=== PATIENT | female | born 1990 | race Caucasian/White ===

== ENCOUNTER 2017-04-28 07:13 | Emergency (ER) | payer OTHER ==
[2017-04-28 07:51] VITALS: BMI 24.8
[2017-04-28] MEDS ORDERED: Lactated Ringer's 1,000 ML IV SCH (08:30)
--- NOTE | 2017-04-28 10:42 | OBHP ---
Datetime: 04/28/2017 10:32 IP Adm Impression: Term, intrauterine IP Admit Plan: Discharge home Admit Comment, IP Provider: 26 yo G1 at 37+6 wks c/o painful ctxns since 3am, denies LOF, VB and rep orts FM. Pt is a pt of Dr. Griggs. PMH: Healthy PSH: None Meds: PNVs All: NKDA Fam hx: N/c Soc hx: Pt denies tobacco, alcohol, and illicit drug use [employer] hx: 12x regular periods, denies STDs and abn paps PE: AFVSS Gen'l: pt appears slightly uncomfortable Abd: soft, NT, gravid Ext: NT VE: closed/ posterior (exam at 0828) EFM: as above [place]: as above A/P: 26 yo G1 at 37+6 wks w/ painful ctxns. NST reactive. Pt re-examined by Dr. Pacheco at 1000, unc hanged, and pt discharged home w/ labor precautions. Extremities - PN: Normal Abdomen - PN: Normal Neurologic - PN: Normal FHR - Baseline A Provider: 130's Membranes, Provider: Intact Contraction Comments Provider: irregular EGA AdmitDate IP: 37.6 Vital Signs Provider: Reviewed IP Chief Complaint: Uterine contractions NICHD Variability Prov Fetus A: Moderate 6-25bpm NICHD Accel Fetus A IP Provider: 15X15 FHR Category Provider Fetus A: Category I NICHD Decel Fetus A IP Provider: None Dilatation, Provider: 0 Effacement, Provider: 0 Station, Provider: -3 Genitourinary Exam: Normal
[2017-04-28 14:26] VITALS: BP 110/73; PULSE 92; RESP 16; TEMP 97.8
== END 2017-04-28 09:59 | disposition home or self-care (01) ==
LOC: H.EROB2 07:13
DX: O26.93 Pregnancy related conditions, unspecified, third trimester (principal); R10.2 Pelvic and perineal pain; Z3A.38 38 weeks gestation of pregnancy
CPT/HCPCS: 99283; J7120

== ENCOUNTER 2017-05-09 12:46 | Emergency (ER) | payer OTHER | END 2017-05-09 18:00 | disposition home or self-care (01) | LOC: H.EROB2 12:46 → H.L&D 12:46 → H.EROB2 18:00 | DX: O47.1 False labor at or after 37 completed weeks of gestation (principal); O26.93 Pregnancy related conditions, unspecified, third trimester; R10.2 Pelvic and perineal pain; Z3A.39 39 weeks gestation of pregnancy ==

== ENCOUNTER 2017-05-10 01:33 | Inpatient (IN) | payer OTHER ==
[2017-05-10 02:11] VITALS: BMI 23.6
[2017-05-10] MEDS ORDERED: AMPicillin 2 GM in Sodium Chloride 0.9% 100 ML IVPB ONE (02:30)
--- NOTE | 2017-05-10 02:33 | OBHP ---
Datetime: 05/10/2017 02:15 IP Adm Impression: Term, intrauterine ; Intact Membranes IP Admit Plan: Admit to unit; Initiate labor protocol Admit Comment, IP Provider: 26yo IUP at term c/o ctx pain today. She was seen earlier by Dr Yogesh price and noted to be closed. Pain worsened in intensit. No SROM. No VB. +FM POBGYNH: no STD; G1 PMNH: denies PSH denies NKA PSoH: no smoking ETOH drugs A; IUP at term ; latent phase of labor GBS+ PLAN: spoke with Dr Griggs - will admit; IV access; check labs; pain mananagment, labor and deliv nils discussed chart rev'd Pelvic Type - PN: Adequate Extremities - PN: Normal Abdomen - PN: Normal Back - PN: Normal Breast - PN: Not Done Lungs - PN: Normal Heart - PN: Normal Thyroid - PN: Normal Neurologic - PN: Normal HEENT - PN: Normal General - PN: Normal Presentation-Admit: Vertex FHR - Baseline A Provider: 130 IP Hx Assessment: The History has been Reviewed and is Current EGA AdmitDate IP: 39.4 Vital Signs Provider: Reviewed; Within Normal Limits IP Chief Complaint: Uterine contractions NICHD Variability Prov Fetus A: Moderate 6-25bpm NICHD Accel Fetus A IP Provider: 15X15 FHR Category Provider Fetus A: Category I NICHD Decel Fetus A IP Provider: None Dilatation, Provider: 2 Genitourinary Exam: Normal DTRs - PN: Normal
[2017-05-10] MEDS: Lactated Ringer's 1,000 ML IV SCH ×2 (03:00→04:00)
[2017-05-10 03:55] LABS: BASO % 0.3 % (0.0-2.0); EOS # 0.1 K/uL (0.0-0.7); EOS % 0.7 % (0.0-4.0); HEMATOCRIT 38.1 % (34.0-47.0); LYMPH # 1.8 K/uL (1.0-4.3); LYMPH % 19.3 % (20.0-40.0); MEAN CELL VOLUME 89.6 fl (81.0-99.0); MEAN CORPUSCULAR HEMOGLOBIN 30.9 pg (27.0-31.0); MEAN CORPUSCULAR HGB CONC 34.4 g/dL (33.0-37.0); MEAN PLATELET VOLUME 10.3 fl (7.2-11.7); MONO # 0.9 K/uL (0.0-0.8); MONO % 9.9 % (0.0-10.0); NEUT # 6.5 K/uL (1.8-7.0); NEUT % 69.8 % (50.0-75.0); NRBC % 0.2 % (0.0-0.0); RED CELL DISTRIBUTION WIDTH 14.9 % (11.5-14.5); WHITE BLOOD COUNT 9.3 K/uL (4.8-10.8)
[2017-05-10] MEDS ORDERED: Fentanyl/Bupivacaine HCl 250 ML EPI ONE (04:50)
[2017-05-10] MEDS ORDERED: Bupivacaine HCl 0.25% PF (10 ml) Inj ONE (04:51)
[2017-05-10] MEDS ORDERED: Lactated Ringer's 1,000 ML IV SCH (05:00)
[2017-05-10] MEDS: AMPicillin 1 GM in Sodium Chloride 0.9% 100 ML IVPB SCH ×2 (07:12→11:00)
[2017-05-10] MEDS ORDERED: Oxytocin 30 units/LR 500ML 30 U/500 ML BAG IV ONE (07:37)
--- NOTE | 2017-05-10 07:42 | OBADHP ---
Datetime: 05/10/2017 02:15 Admit Comment, IP Provider: 26yo IUP at term c/o ctx pain today. She was seen earlier by Dr Yogesh price and noted to be closed. Pain worsened in intensit. No SROM. No VB. +FM POBGYNH: no STD; G1 PMNH: denies PSH denies NKA PSoH: no smoking ETOH drugs A; IUP at term ; latent phase of labor GBS+ PLAN: spoke with Dr Griggs - will admit; IV access; check labs; pain mananagment, labor and deliv nils discussed chart rev'd Pelvic Type - PN: Adequate Extremities - PN: Normal Abdomen - PN: Normal Back - PN: Normal Breast - PN: Not Done Lungs - PN: Normal Heart - PN: Normal Thyroid - PN: Normal Neurologic - PN: Normal HEENT - PN: Normal General - PN: Normal Presentation-Admit: Vertex FHR - Baseline A Provider: 130 Membranes, Provider: Intact Contraction Comments Provider: 3 min Comments, ACOG Physical Exam: Abd gravid, NT Ext no calf tenderness IP Hx Assessment: The History has been Reviewed and is Current Vital Signs Provider: Reviewed; Within Normal Limits IP Chief Complaint: Uterine contractions NICHD Variability Prov Fetus A: Moderate 6-25bpm NICHD Accel Fetus A IP Provider: 15X15 FHR Category Provider Fetus A: Category I NICHD Decel Fetus A IP Provider: None Dilatation, Provider: 2-3 Effacement, Provider: 80-90 Genitourinary Exam: Normal DTRs - PN: Normal EGA AdmitDate IP: 39.4 IP Adm Impression: Term, intrauterine ; Intact Membranes IP Admit Plan: Admit to unit; Initiate labor protocol Datetime: 04/28/2017 10:32 Station, Provider: -3
[2017-05-10] MEDS ORDERED: Lidocaine 1% Inj (20ml) ONE (07:59)
--- NOTE | 2017-05-10 12:00 | OBDS ---
DELIVERY PERSONNEL Delivery Doctor: Asha Griggs MD Physician Assistant Surgery: Desi Adair RN MATERNAL INFORMATION Delivery Anesthesia: Epidural Medications in Delivery: pitocin Estimated Blood Loss (ml): 200 Maternal Complications: None Provider Comments: Delivered a living baby boy appears term cried spontaneously 9/9, AF clear placenta delivered complete and intact Episiotomy repaired as above. No complications Rectal done no defects Uterus contracted well no vaginal cervical or perineal lacerations noted Tolerated procedure well LABOR SUMMARY EDC: 05/13/2017 00:00 No. Babies in Womb: 1 Attempted: No Labor Anesthesia: Epidural LABOR INFORMATION Reason for Induction: Not Applicable Reason for Induction Other: n/a Onset of Labor: 05/09/2017 18:00 Complete Dilatation: 05/10/2017 09:15 Oxytocin: Augmentation Group B Beta Strep: Positive Antibiotics # of Doses: 3 Antibiotics Time of Last Dose: 1100 Steroids Given: None Reason Steroids Not Administered: Not Applicable Other Reason Not Administered: n/a MEMBRANES Membranes Rupture Method: Artificial Rupture of Membranes: 05/10/2017 07:30 Length of Rupture (hrs): 3.82 Amniotic Fluid Color: Clear Amniotic Fluid Amount: Moderate Amniotic Fluid Odor: Normal STAGES OF LABOR Stage 1 hrs: 15 Stage 1 min: 15 Stage 2 hrs: 2 Stage 2 min: 4 Stage 3 hrs: 0 Stage 3 min: 6 Total Time in Labor hrs: 17 Total Time in Labor min: 25 VAGINAL DELIVERY Episiotomy: Median Laceration Extension: Second Degree Laceration Type: Perineal Laceration Repair: Yes Laceration Repair Note: A medial vaginal-perineal episiotomy done and repaired with 2-0 chromic inte rrupted and cont suturing without any complications Initial Vag Sponge Count: 5 Final Vag Sponge Count: 5 Initial Vag Sharps Count: 4 Final Vag Sharps Count: 4 Sponge Count Correct: Yes Sharps Count Correct: Yes Count Comment: correct count and verifired by nurse CSECTION DELIVERY Primary Indication: N/A Secondary Indication: N/A CSection Incision: N/A Uterine Closure: N/A BABY A INFORMATION Delivery Date/Time: 05/10/2017 11:19 Method of Delivery: Vaginal Born in Route : No : N/A Forceps: N/A Vacuum Extraction: N/A Shoulder Dystocia : No SHOULDER DYSTOCIA BABY A Infant Delivery Date/Time: 05/10/2017 11:19 PRESENTATION/POSITION BABY A Presentation: Cephalic Cephalic Presentation: Vertex Breech Presentation: N/A PLACENTA INFORMATION BABY A Placenta Delivery Time : 05/10/2017 11:25 Placenta Method of Delivery: Spontaneous Placenta Status: Delivered SCORES BABY A Heart Rate 1 min: >100 bpm Resp Effort 1 min: Good Cry Reflex Irritability 1 min: Cough or Sneeze or Pulls Away Muscle Tone 1 min: Active Motion Color 1 min: Body [place], Extremities Blue Resuscitation Effort 1 min: Tactile Stimulation SCORE 1 MIN: 9 Heart Rate 5 min: >100 bpm Resp Effort 5 min: Good Cry Reflex Irritability 5 min: Cough or Sneeze or Pulls Away Muscle Tone 5 min: Active Motion Color 5 min: Body [place], Extremities Blue Resuscitation Effort 5 min: Tactile Stimulation SCORE 5 MIN: 9 INFORMATION BABY A Gestational Age at Delivery: 40.0 Gestational Status: Term Infant Outcome : Liveborn Infant Condition : Stable Sex: Male IDENTIFICATION/MEDS BABY A ID Band Number: [id number] ID Band Location: Left Leg; Left Arm Vitamin K Given : Not Given Erythromycin Given: Not Given WEIGHT/LENGTH BABY A Infant Birthweight (gms): 3595 Weight (lb): 7 Weight (oz): 15 CORD INFORMATION BABY A No. Cord Vessels: 3 Nuchal Cord : N/A Cord Blood Taken: Yes Suction: Mouth; Nose ASSESSMENT BABY A Infant Complications: None Physical Findings at Delivery: Within Normal Limits Infant Respirations: Appears Normal [employer] [facility] Manager/ALS Called : No Infant Care By: amber Villanueva Transferred To: Remains with Mother
[2017-05-10] MEDS ORDERED: Oxycodone/Acetaminophen 5/325 mg Tab PO PRN ×2 (12:01→20:11)
[2017-05-10] MEDS ORDERED: Benzocaine/Menthol SPRAY TOP PRN ×2 (14:39→20:11)
[2017-05-11 08:04] LABS: HEMATOCRIT 34.9 % (34.0-47.0); MEAN CELL VOLUME 91.4 fl (81.0-99.0); MEAN CORPUSCULAR HEMOGLOBIN 29.8 pg (27.0-31.0); MEAN CORPUSCULAR HGB CONC 32.6 g/dL (33.0-37.0)
--- NOTE | 2017-05-11 10:53 | OBPPN ---
Datetime: 05/11/2017 10:46 PP Pain Prov: Within normal limits PP Pain Prov comment: No SOB, chest or leg pains PP Nausea Prov: Denies PP Flatus Prov: Yes PP Breasts Prov: Normal PP Lungs Prov: Normal PP Abdomen/Uterus Prov: Abnormal PP Lochia Prov: Normal PP Vulva/Perineum Prov: Normal PP CVA Tenderness Prov: Normal PP Extremities Prov: Normal PP C/S Incision Prov: Not Applicable PP Progress Prov: Normal PP Comments Phys Exam Prov: breast not engorged NT, abd soft ND, NT fundus firm below the umb. firm Ext no calf tenderness or edema PP Impression Prov: Normal progression PP Plan Prov: Continue present management PP Progress Note Prov: Continue PP care, OOB and ambulation IP PP Procedures: None
--- NOTE | 2017-05-12 07:18 | OBDCSUM ---
Datetime: 05/12/2017 07:16 Discharged to, Provider: Home Follow up at, Provider: Dr Griggs Disch Instr Activity: Bedrest; May be up to bathroom; May be up for meals; May Shower Disch Instr Diet: Regular Discharge Instructions, Provider: Routine instructions given Discharge Diagnosis, Provider: Term Delivered Discharge Time: 05/12/2017 07:16 Follow up in weeks, Provider: 4-6 wks Disch Referrals: None Contraception discussed, Prov: Yes Disch Activity Restrictions: No exercising; No lifting; No driving; Minimize walking; Minimize stair -climbing; No sexual activity; Nothing in vagina - [place], tampons, douche Discharge Comment, Provider: Continue PNC vit and iron Contraception after Delivery: Undecided
--- NOTE | 2017-05-12 07:18 | OBPPN ---
Datetime: 05/12/2017 07:12 PP Pain Prov: Within normal limits PP Pain Prov comment: No SOB, chest pains or leg pains PP Nausea Prov: Denies PP Flatus Prov: Yes PP Nausea Prov comment: voiding well PP Breasts Prov: Normal PP Lungs Prov: Normal PP Abdomen/Uterus Prov: Abnormal PP Lochia Prov: Normal PP Vulva/Perineum Prov: Abnormal PP CVA Tenderness Prov: Normal PP Extremities Prov: Normal PP C/S Incision Prov: Not Applicable PP Progress Prov: Normal PP Comments Phys Exam Prov: breast not engorged NT, Abd soft ND, fundus firm below the umb NT Perine um repaired Ext no calf tenderness PP Impression Prov: Normal progression PP Plan Prov: Discharge PP Progress Note Prov: D/C home with instructions and folllow up office 4-6 wks IP PP Procedures: None Vital Signs Provider PP: Reviewed
[2017-05-12 19:54] VITALS: BP 120/72; PULSE 86; RESP 20; TEMP 97.9; O2SAT 100
== END 2017-05-12 15:35 | disposition home or self-care (01) | DRG 373 ==
LOC: H.EROB2 01:33 → H.L&D 02:24 → H.OB/GYN 22:28
PROVIDERS: ADMIT Specialist; ATTEND Specialist
PROC: 0KQM0ZZ Repair Perineum Muscle, Open Approach (ICD-10-PCS; principal; 2017-05-10)
PROC: 10E0XZZ Delivery of Products of Conception, External Approach (ICD-10-PCS; 2017-05-10)
PROC: 4A1HXCZ Monitoring of Products of Conception, Cardiac Rate, External Approach (ICD-10-PCS; 2017-05-10)
DX: O70.1 Second degree perineal laceration during delivery (principal); Z37.0 Single live birth; Z3A.39 39 weeks gestation of pregnancy